=== PATIENT | male | born 1995 | race Caucasian/White ===

== ENCOUNTER 2023-05-20 13:45 | Emergency (ER) | payer OTHER, SELFPAY ==
[2023-05-20 13:52] VITALS: BP 124/75; PULSE 58; RESP 16; TEMP 36.6; O2SAT 99; BMI 27.1
--- NOTE | 2023-05-20 14:37 | ED_ITS ---
HPI - Back Pain/Injury General Chief Complaint: Back Pain/Injury Stated Complaint: BACK PAIN Time Seen by Provider: 05/20/23 14:28 Source: patient Mode of arrival: walk-in Limitations: no limitations History of Present Illness HPI Narrative: 27 year old male presents to the ED for low back pain s/p injury 2 days ago. States his felt a pull in his lower back while lifting weights. States he was doing deadlifts. Reports N/T to his left upper leg. Denies fever, chills, weakness, urinary sx. Denies change in bowel and/or bladder control. He has tried Tylenol and Lidocaine patches without relief. He drove himself to the ED today. Rates his pain 7/10 at this time. The pain is worse with movement. Related Data Previous Rx's Medication Instructions Recorded hydrocodone 5 mg-acetaminophen 325 1 tab PO Q8H PRN pain 5 days #15 05/20/23 mg tablet tabs prednisone 20 mg tablet 40 mg PO DAILY 5 days #10 tabs 05/20/23 Allergies Allergy/AdvReac Type Severity Reaction Status Date / Time No Known Drug Allergies Allergy Verified 05/20/23 13:50 Review of Systems ROS Constitutional Denies: fever or chills Cardiovascular Denies: chest pain Respiratory Denies: shortness of breath Gastrointestinal Denies: abdominal pain, nausea, vomiting or diarrhea Genitourinary Denies: painful urination, blood in urine or difficulty urinating Musculoskeletal Reports: back pain and extremity pain (Left upper leg); Denies: neck pain Integumentary/Breast Denies: rash Neurological Reports: numbness in extremities (Left upper leg tingling); Denies: headache or weakness in extremities PFSH PFSH Social History Smoking status: Never smoker Exam Constitutional Vital Signs, click to edit/add: Last Vital Signs Temp 97.9 F 05/20/23 13:52 Pulse 58 L 05/20/23 13:52 Resp 16 05/20/23 13:52 BP 124/75 05/20/23 13:52 Pulse Ox 99 05/20/23 13:52 O2 Del Method Room Air 05/20/23 13:52 Common normals: no apparent distress and oriented x3 General appearance: cooperative; not comfortable and not ill appearing Eye Common normals: no scleral icterus Chest Chest: symmetrical chest wall rise Respiratory Common normals: normal respiratory effort Effort & inspection: able to speak in complete sentences and symmetric chest movement Cardio Common normals: regular rate and regular rhythm Back & Pelvis Thoracic spine/upper back: normal to inspection Lumbar spine/lower back: normal to inspection, pain with ROM, lumbar spinal t enderness, paraspinal muscle tenderness and paraspinal muscle spasm Neuro Common normals: oriented x3 Sensorium/orientation: awake and alert Speech: speech normal Gait (neuro): normal gait Course Vital Signs Vital signs: Vital Signs Temperature 97.9 F 05/20/23 13:52 Pulse Rate 58 L 05/20/23 13:52 Respiratory Rate 16 05/20/23 13:52 Blood Pressure 124/75 05/20/23 13:52 Pulse Oximetry 99 05/20/23 13:52 Oxygen Delivery Method Room Air 05/20/23 13:52 Temperature 97.9 F 05/20/23 13:52 Pulse Rate 58 L 05/20/23 13:52 Respiratory Rate 16 05/20/23 13:52 Blood Pressure 124/75 05/20/23 13:52 Pulse Oximetry 99 05/20/23 13:52 Oxygen Delivery Method Room Air 05/20/23 13:52 MDM - Back Pain/Injury MDM Narrative Medical decision making narrative: CT scan showed an age-indeterminate broad-based posterior annular bulge at L4- L5. Findings were discussed with the patient. He was medicated for his discomfort here. OARRS was reviewed. Prescriptions were provided for prednisone and norco. Follow up with and an orthopedist for a recheck, further evaluation and treatment. Return precautions were discussed. Differential Diagnosis Differential diagnosis: Likely lumbar radiculopathy, sciatica and strain of lumbar region Medical Records Attestation: I reviewed the patient's medical records. Imaging Data CT scan- lumbar spine: Attestation: I have reviewed the pertinent imaging results. Radiologist's impression: Procedure: CT lumbar spine wo con EXAM: CT lumbar spine wo con HISTORY: Left-sided back pain that radiates into left lower extremity after lifting weights COMPARISON: Lumbar spine x-rays 05/03/2021 TECHNIQUE: Axial CT imaging is performed. Sagittal and coronal reformatted/reconstructed sequences were additionally performed FINDINGS: Maintenance of the normal lumbar lordosis. Vertebral body heights and alignments exhibit no fracture or listhesis. There appears to be a broad-based annular bulge at L4-L5. The remainder of the disc levels appear unremarkable. Intervertebral disc space heights are unremarkable. Facet joints are normal. No prevertebral soft tissue edema. No muscle hematoma, atrophy or fatty infiltration. The visualized bowel is unremarkable. No visualized soft tissue edema. CT/CT lumbar spine wo con IMPRESSION: Age-indeterminate broad-based posterior annular bulge at L4-L5. Outpatient lumbar spine MRI without contrast is suggested Electronically authenticated by: MIK HART Date: 05/20/2023 15:36 Discharge Plan Discharge Chief Complaint: Back Pain/Injury Clinical Impression: Back pain, L4-L5 disc bulge Patient Disposition: Home, Self-Care Time of Disposition Decision: 15:55 Condition: Good Mode of Transportation: Private Vehicle Prescriptions / Home Meds: New hydrocodone-acetaminophen 5-325 mg tablet 1 tab PO Q8H PRN (Reason: pain) 5 Days Qty: 15 0RF prednisone 20 mg tablet 40 mg PO DAILY 5 Days Qty: 10 0RF Instructions: Back Pain (ED) Stand Alone Forms: Portal Instructions Referrals: Physician,Non-Staff, [Primary Care Provider] - 1 week Reji Negron MD [Physician] - 1 week Discharge Date/Time: 05/20/23 16:19
--- NOTE | 2023-05-20 14:40 | CT_ITS ---
The [address] [address] Patient Name: BEE BANKS MRN: [id number] date: 1995 Sex: M Assigned Patient Location: ER Current Patient Location: .[facility] Accession/Order Number: [id number] Exam Date: 05/20/2023 15:10 Report Date: 05/20/2023 15:36 At the request of: YASMIN STEVENSON Procedure: CT lumbar spine wo con EXAM: CT lumbar spine wo con HISTORY: Left-sided back pain that radiates into left lower extremity after lifting weights COMPARISON: Lumbar spine x-rays 05/03/2021 TECHNIQUE: Axial CT imaging is performed. Sagittal and coronal reformatted/reconstructed sequences were additionally performed FINDINGS: Maintenance of the normal lumbar lordosis. Vertebral body heights and alignments exhibit no fracture or listhesis. There appears to be a broad-based annular bulge at L4-L5. The remainder of the disc levels appear unremarkable. Intervertebral disc space heights are unremarkable. Facet joints are normal. No prevertebral soft tissue edema. No muscle hematoma, atrophy or fatty infiltration. The visualized bowel is unremarkable. No visualized soft tissue edema. CT/CT lumbar spine wo con IMPRESSION: Age-indeterminate broad-based posterior annular bulge at L4-L5. Outpatient lumbar spine MRI without contrast is suggested Electronically authenticated by: MIK HART Date: 05/20/2023 15:36
[2023-05-20] MEDS: KETOROLAC TROMETHAMINE 60 MG/2 ML VIAL IM (14:53)
[2023-05-20] MEDS: DEXAMETHASONE SODIUM PHOSPHATE 10 MG/ML VIAL IM (14:54)
[2023-05-20] MEDS: METAXALONE 800 MG TABLET PO (15:02)
== END 2023-05-20 16:19 | disposition home or self-care (01) ==
PROVIDERS: Emergency Provider Emergency Medicine
DX: M51.36 Other intervertebral disc degeneration, lumbar region (principal); M54.9 Dorsalgia, unspecified; X50.9XXA Other and unspecified overexertion or strenuous movements or postures, initial encounter; Y93.B3 Activity, free weights
CPT/HCPCS: 72131; 96372; 99284; J1100